=== PATIENT | female | born 1995 | race Caucasian/White ===

== ENCOUNTER 2017-11-15 18:41 | Emergency (ER) | payer SELFPAY ==
[~2017-11-15] VITALS: Ht 177.8 cm; Wt 124.7 kg
[2017-11-15 19:10] VITALS: BP 124/84
[2017-11-15] MEDS ORDERED: PROMETHAZINE-C118 M1 ORAL (19:10)
[2017-11-15] MEDS ORDERED: TYLENOL EXTRA500 MG ORAL (19:10)
[2017-11-15] MEDS ORDERED: CLARITIN-D 121 EAC1 ORAL (19:10)
--- NOTE | 2017-11-15 19:10 | Emergency Room Report ---
History of Present Illness General Chief Complaint: Upper Respiratory Illness Source: Patient Present Illness HPI 21-year-old male patient presents ER complaining of left ear fullness, congestion, cough. Reports history of subjective fever a few days ago, reports no fever recently. reports cough with sputum. Denies hemoptysis. Reports fullness and ear, denies vision changes or denies. Denies vomiting. Denies chest pain, shortness of breath. Denies abdominal pain. Reports has been taking [id number]-pyqjtdg medications at home including Robitussin and Sudafed. reports attempt to clean left here with [id number] remedy, reports bleeding from ear following procedure. denies vertigo or dizziness. Patient History Past Medical History: see triage record Reviewed Nursing Documentation: PMH: Agreed; PSxH: Agreed Nursing Documentation-PMH Past Medical History: No Stated History Hx Gastrointestinal Problems: Yes - IBS Review of Systems All Other Systems: negative except mentioned in HPI Physical Exam Vital Signs Date Time Temp Pulse Resp B/P (MAP) Pulse Ox O2 Delivery O2 Flow Rate FiO2 11/15/17 18:47 98.8 90 20 124/84 98 Room Air 98.8 Sp02 EP Interpretation: reviewed, normal General Appearance: well appearing, no apparent distress, alert, GCS 15, non- toxic Head: normocephalic, atraumatic, other - no maxillary or ethmoid sinus TTP bilaterally Eyes: bilateral eye normal inspection, bilateral eye PERRL ENT: hearing grossly normal, normal pharynx, no angioedema, normal voice, TMs + canals normal - right ear, uvula midline, moist mucus membranes, nasal congestion, other - left ear: small scab and dried blood present likely due to patient attempting to clear, and left ear TM normal; Neck: full range of motion, no bony tend Respiratory: lungs clear, normal breath sounds, no rhonchi, no respiratory distress, no accessory muscle use, no wheezing, speaking full sentences Cardiovascular #1: regular rate, rhythm, no edema Musculoskeletal: back normal, digits/nails normal, gait/station normal, normal range of motion, non-tender Neurologic: alert, oriented x3, responsive, motor strength/tone normal, sensory intact Psychiatric: mood/affect normal Skin: no rash Lymphatic: no adenopathy Medical Decision Making PA Attestation Dr. Garcia is my supervising Physician whom patient management has been discussed with. Diagnostic Impression: Primary Impression: Nasal congestion Additional Impressions: Cough Earache on left ER Course Pt presents to ED c/o cough, congestion, ear fullness. DDX considered but are not limited to influenza, viral URI, strep throat, rhinitis, sinusitis, otitis media. Lungs clear to auscultation, no wheezes or diarrhea, patient afebrile, low suspicion for pneumonia, will not order CXR at this time. VITAL SIGNS are WNL, patient is afebrile ER COURSE: Patient's physical exam benign, lungs clear to auscultation, no pharyngeal erythema or tonsillar exudates, TMs nonerythematous, no effusion, light reflex intact, no TM perforation, bilaterally. Informed patient that congestion symptoms likely related cough, cough likely leading to symptoms of ear fullness and sore throat. Uvula midline, no stridor, low suspicion for peritonsillar abscess. Will treat patient symptomatically. Salt water gargles for sore throat. Informed patient not to stick anything in the ear to attempt to clean here. Informed patient that dried blood in here and scab will heal on their own, not require antibiotic treatment at this time, take Tylenol for pain. Follow-up with primary care doctor and request referral to ENT as needed. Discuss further treatment and management at that time. DISCHARGE: -Rx given for Claritin-D -Rx given for Tylenol/Acetaminophen -Rx given for Promethazine with codeine syrup for cough sx. SE drowsiness, do not take prior to drinking driving or operating heavy machinery. tears report reviewed, no recent medication prescribed. At this time pt is stable for d/c to home. Patient is resting comfortably, in no acute distress, nontoxic appearing. Patient to take medications as instructed Will provide with patient care instructions and any necessary prescriptions. Care plan and follow-up instructions provided. Patient instructed to follow-up with primary care provider in 3 - 5 days. Patient questions asked and answered. Patient reports understanding and agreement to treatment plan. ER precautions given. Patient instructed to return to ER immediately for any new or worsening of symptoms including but not limited to increasing SOB, persistent fever, intractable vomiting. - Please note that this Emergency Department Report was dictated using [employer] nutrition director technology software, occasionally this can lead to erroneous entry secondary to interpretation by the dictation equipment. Last Vital Signs Date Time Temp Pulse Resp B/P (MAP) Pulse Ox O2 Delivery O2 Flow Rate FiO2 11/15/17 18:47 98.8 90 20 124/84 98 Room Air 98.8 Disposition: HOME, SELF-CARE Condition: Stable Scripts Loratadine/Pseudoephedrine (CLARITIN-D 12 HOUR TABLET) 1 Each Tab.er.12h 1 TAB ORAL EVERY 12 HOURS, #24 TAB Prov: Luan Gupta 11/15/17 Acetaminophen* (TYLENOL EXTRA STRENGTH*) 500 Mg Tablet 500 MG ORAL Q8H PRN for Prn Headache/Temp > 101, #30 TAB 0 Refills Prov: Luan Gupta 11/15/17 Codeine/Promethazine Hcl* (PROMETHAZINE-CODEINE SYRUP*) 118 Ml Syrup 5 ML ORAL Q6H PRN for For Cough, #100 ML 0 Refills Prov: Luan Gupta 11/15/17 Patient Instructions: Allergic Rhinitis, Cough, Adult, Rwrn-[id number], Ear Barotrauma, Epyy-el-Suee, Earache Additional Instructions: Followup with primary care provider in 3 -5 days. Request referral to ENT. Take medications as directed. SE drowsiness, do not take prior to drinking, driving, or operating heavy machinery. Patient questions asked and answered. ER precautions given, patient instructed to return to ER immediately for any new or worsening of symptoms. Luan Gupta Nov 15, 2017 19:10
[2017-11-15 19:18] VITALS: BP 124/84
== END 2017-11-15 19:30 | disposition home or self-care (01) ==
LOC: EMR 19:21
DX: R09.81 Nasal congestion (principal); R05 Cough; H92.02 Otalgia, left ear
CPT/HCPCS: 99284